=== PATIENT | male | born 1985 | race Caucasian/White ===

== ENCOUNTER 2017-08-11 12:52 | Emergency (ER) | payer OTHER ==
[~2017-08-11] VITALS: Ht 175.3 cm; Wt 78.6 kg
[2017-08-11 12:59] VITALS: TEMP 98.7
[2017-08-11 15:11] LABS: BASO % 0.4 % (0.0-2.0); EOS % 0.1 % (0-4.0); GRAN # 4.9 (1.4-6.5); HEMATOCRIT 43.2 % (42.0-52.0); HEMOGLOBIN 14.9 g/dl (13.5-18.0); LYMPH # 1.4 (1.2-3.4); LYMPH % 20.7 % (20.0-51.0); MEAN CELL VOLUME 84 fl (80.0-100.0); MEAN CORPUSCULAR HEMOGLOBIN 29 pg (27.0-31.0); MEAN CORPUSCULAR HGB CONC 35 g/dl (33.0-37.0); MEAN PLATELET VOLUME 9.3 fl (7.4-10.4); MONO # 0.5 (0.1-0.6); MONO % 7.7 % (1.7-9.3); PLATELET COUNT 195 K/mm3 (130-400); RED BLOOD COUNT 5.15 M/mm3 (4.20-5.60); REDCELL DISTRIBUTION WIDTH-CV 12.2 % (11.5-14.5)
[2017-08-11 15:20] LABS: ALANINE AMINOTRANSFERASE 32 U/L (21-72); ALBUMIN 4.8 gm/dL (3.5-5.0); ALKALINE PHOSPHATASE 93 U/L (50-136); ANION GAP 10 mmol/L (7-16); AST,SGOT 28 U/L (15-37); BILIRUBIN,TOTAL 0.6 mg/dL (0.0-1.0); BLOOD UREA NITROGEN 18 mg/dL (9-20); CALCIUM 9.6 mg/dL (8.4-10.2); CARBON DIOXIDE 26 mmol/L (22-30); CHLORIDE 102 mmol/L (98-107); CREATININE, serum 0.99 mg/dL (0.66-1.25); GLUCOSE 94 mg/dL (74-106); LIPASE 91 U/L (23-300); POTASSIUM 4.1 mmol/L (3.4-5.0); SODIUM 138 mmol/L (137-145); TOTAL PROTEIN 7.7 gm/dL (6.4-8.2)
[2017-08-11 15:32] LABS: TROPONIN-I < 0.012 ng/mL (0.000-0.034)
[2017-08-11] MEDS ORDERED: CARAFATE 1GM1 G PO (15:36)
[2017-08-11 15:42] VITALS: BP 135/96; PULSE 90
== END 2017-08-11 15:43 | disposition home or self-care (01) ==
LOC: COL.ER 12:52
PROVIDERS: Physician Assistant
DX: K29.70 Gastritis, unspecified, without bleeding (principal); K21.9 Gastro-esophageal reflux disease without esophagitis

== ENCOUNTER → 2017-09-09 | Outpatient (CLI) | payer OTHER ==
[~2017-09-09] MED LIST: CARAFATE 1GM1 G PO
== END ==
LOC: BHSO 14:26
DX: F43.10 Post-traumatic stress disorder, unspecified (principal)

== ENCOUNTER 2017-09-17 09:08 | Emergency (ER) | payer OTHER ==
[~2017-09-17] VITALS: Ht 175.3 cm; Wt 81.4 kg
[2017-09-17 09:13] VITALS: TEMP 97.9
[2017-09-17] MEDS ORDERED: LAMICTAL 25MG T25 MG PO (11:31)
[2017-09-17] MEDS ORDERED: ATIVAN 0.50.5 MG/TAB PO (11:31)
[2017-09-17] MEDS ORDERED: ATARAX 25MG25 MG/TAB PO (11:31)
[2017-09-17 12:00] VITALS: BP 127/84; PULSE 84
== END 2017-09-17 12:08 | disposition home or self-care (01) ==
LOC: COL.ER 09:08
DX: F41.0 Panic disorder [episodic paroxysmal anxiety] (principal); H53.121 Transient visual loss, right eye; F43.10 Post-traumatic stress disorder, unspecified; F12.90 Cannabis use, unspecified, uncomplicated

== ENCOUNTER 2017-10-04 13:08 | Emergency (ER) | payer OTHER ==
[~2017-10-04] VITALS: Ht 175.3 cm; Wt 74.5 kg
[~2017-10-04 13:08] MED LIST changes: +ATARAX 25MG25 MG/TAB PO; +ATIVAN 0.50.5 MG/TAB PO; +LAMICTAL 25MG T25 MG PO
[2017-10-04 13:12] VITALS: BP 157/93; TEMP 98.4
[2017-10-04] MEDS ORDERED: CARAFATE 1GM1 G PO (13:14)
[2017-10-04 13:54] LABS: BASO % 0.6 % (0.0-2.0); EOS % 0.4 % (0-4.0); GRAN # 3.5 (1.4-6.5); HEMATOCRIT 43.5 % (42.0-52.0); HEMOGLOBIN 14.9 g/dl (13.5-18.0); LYMPH # 1.3 (1.2-3.4); MEAN CELL VOLUME 83 fl (80.0-100.0); MEAN CORPUSCULAR HEMOGLOBIN 28 pg (27.0-31.0); MEAN CORPUSCULAR HGB CONC 34 g/dl (33.0-37.0); MEAN PLATELET VOLUME 9.2 fl (7.4-10.4); MONO # 0.5 (0.1-0.6); MONO % 8.8 % (1.7-9.3); PLATELET COUNT 208 K/mm3 (130-400); RED BLOOD COUNT 5.27 M/mm3 (4.20-5.60); REDCELL DISTRIBUTION WIDTH-CV 12.2 % (11.5-14.5)
[2017-10-04 14:04] LABS: ALBUMIN 4.9 gm/dL (3.5-5.0); BILIRUBIN,TOTAL 0.6 mg/dL (0.0-1.0); CALCIUM 9.1 mg/dL (8.4-10.2); CREATININE, serum 0.89 mg/dL (0.66-1.25); POTASSIUM 3.8 mmol/L (3.4-5.0); TOTAL PROTEIN 7.6 gm/dL (6.4-8.2)
[2017-10-04] MEDS ORDERED: PRIL40 PO (14:13)
[2017-10-04 14:20] VITALS: PULSE 70
== END 2017-10-04 14:21 | disposition home or self-care (01) ==
LOC: COL.ER 13:08
PROVIDERS: Nurse Practitioner Primary Care
DX: K21.9 Gastro-esophageal reflux disease without esophagitis (principal); F17.200 Nicotine dependence, unspecified, uncomplicated; Z90.89 Acquired absence of other organs; F12.90 Cannabis use, unspecified, uncomplicated

== ENCOUNTER → 2017-10-06 | Outpatient (CLI) | payer OTHER ==
[~2017-10-06] MED LIST changes: +PRIL40 PO
== END ==
LOC: BHSO 14:10
DX: F12.20 Cannabis dependence, uncomplicated (principal)
CPT/HCPCS: G0463

== ENCOUNTER → 2017-11-01 | Outpatient (CLI) | payer OTHER | LOC: BHSO 09:24 | DX: F41.1 Generalized anxiety disorder (principal) | CPT/HCPCS: G0463 ==

== ENCOUNTER → 2017-11-29 | Outpatient (CLI) | payer OTHER | LOC: COL.RAD 07:30 | DX: R10.13 Epigastric pain (principal); R14.2 Eructation; R11.2 Nausea with vomiting, unspecified; R07.89 Other chest pain | CPT/HCPCS: A9541 ==

== ENCOUNTER → 2017-12-27 | Outpatient (CLI) | payer OTHER | LOC: BHSO 09:17 | DX: F41.1 Generalized anxiety disorder (principal) | CPT/HCPCS: G0463 ==

== ENCOUNTER 2020-09-30 11:05 | Emergency (ER) | payer SELFPAY ==
[~2020-09-30] VITALS: Ht 175.3 cm; Wt 79.5 kg
[2020-09-30 11:08] VITALS: TEMP 97.6
[2020-09-30 12:16] VITALS: BP 127/95; PULSE 84
== END 2020-09-30 12:07 | disposition home or self-care (01) ==
LOC: COL.ER 11:05
DX: S61.212A Laceration without foreign body of right middle finger without damage to nail, initial encounter (principal); W26.8XXA Contact with other sharp object(s), not elsewhere classified, initial encounter; Y92.59 Other trade areas as the place of occurrence of the external cause

== ENCOUNTER → 2020-10-13 | Outpatient (CLI) | payer SELFPAY ==
[2020-10-13 08:06] VITALS: BP 121/78; PULSE 68; TEMP 97.5
== END ==
LOC: COL.ER 07:54
DX: Z48.02 Encounter for removal of sutures (principal)